=== PATIENT | female | born 1985 | race Caucasian/White ===

== ENCOUNTER → 2020-05-17 10:12 | Outpatient (BNVA) | payer OTHER, SELFPAY | PROVIDERS: Family Provider Nurse Practitioner Family; Visit Provider Nurse Practitioner Family | DX: M25.572 Pain in left ankle and joints of left foot (principal); M79.672 Pain in left foot | CPT/HCPCS: 73610; 73630 ==

== ENCOUNTER → 2020-05-23 08:22 | Outpatient (BNVA) | payer OTHER, SELFPAY | PROVIDERS: Family Provider Nurse Practitioner Family; Referring Provider Nurse Practitioner Family; Visit Provider Podiatrist Foot & Ankle Surgery | DX: M25.572 Pain in left ankle and joints of left foot (principal) | CPT/HCPCS: 73610 ==

== ENCOUNTER 2020-06-07 13:59 | Outpatient (CLI) | payer OTHER, SELFPAY | END 2020-06-07 14:00 | disposition home or self-care (01) | LOC: SPT 14:00 | PROVIDERS: Family Provider Nurse Practitioner Family; Visit Provider Podiatrist Foot & Ankle Surgery | DX: Z46.89 Encounter for fitting and adjustment of other specified devices (principal); S93.492D Sprain of other ligament of left ankle, subsequent encounter; X58.XXXD Exposure to other specified factors, subsequent encounter | CPT/HCPCS: 97760; L1902 ==

== ENCOUNTER 2021-08-17 12:21 | Outpatient (CLI) | payer BC, SELFPAY ==
[2021-08-17 13:09] VITALS: BP 129/85; PULSE 83; RESP 18; TEMP 36.7; O2SAT 99; BMI 25.5
[2021-08-17 14:25] VITALS: BP 119/78; PULSE 71; RESP 16; TEMP 36.7; O2SAT 99
== END 2021-08-17 12:22 | disposition home or self-care (01) ==
LOC: OPS 12:25
PROVIDERS: PCP Nurse Practitioner Family; Visit Provider Nurse Practitioner
DX: U07.1 COVID-19 (principal)
CPT/HCPCS: 96365

== ENCOUNTER → 2023-12-23 13:15 | Outpatient (BNVA) | payer MEDICAID, SELFPAY | PROVIDERS: PCP Nurse Practitioner Family; Visit Provider Podiatrist Foot & Ankle Surgery | DX: M21.612 Bunion of left foot | CPT/HCPCS: 73630; 99213 ==